=== PATIENT | female | born 1940 | race Caucasian/White ===

== ENCOUNTER 2017-09-29 21:34 | Inpatient (IN) | payer OTHER ==
[~2017-09-29] VITALS: Ht 157.5 cm; Wt 54.9 kg
[~2017-09-29 21:34] MED LIST: COZAAR100 MG
[2017-09-29] MEDS ORDERED: ADULT ASPIRIN81 MG (22:11)
[2017-09-29] MEDS ORDERED: VITAMIN D2000 UNIT (22:12)
[2017-09-29] MEDS ORDERED: NORVASC10 MG (22:13)
== END 2017-10-06 15:50 | disposition home or self-care (01) | DRG 194 ==
LOC: ER 21:34 → MEDJ 09-30 10:28
PROC: 3E0F7GC Introduction of Other Therapeutic Substance into Respiratory Tract, Via Natural or Artificial Opening (ICD-10-PCS; principal; 2017-09-30)
PROC: 4A033R1 Measurement of Arterial Saturation, Peripheral, Percutaneous Approach (ICD-10-PCS; 2017-09-30)
PROC: BB24ZZZ Computerized Tomography (CT Scan) of Bilateral Lungs (ICD-10-PCS; 2017-09-30)
DX: J18.9 Pneumonia, unspecified organism (principal); J45.31 Mild persistent asthma with (acute) exacerbation; I10 Essential (primary) hypertension

== ENCOUNTER 2018-09-19 15:52 | Emergency (ER) | payer OTHER ==
[~2018-09-19] VITALS: Ht 160 cm; Wt 58.1 kg
[~2018-09-19 15:52] MED LIST changes: +ADULT ASPIRIN81 MG; +NORVASC10 MG; +VITAMIN D2000 UNIT
[2018-09-19] MEDS ORDERED: AVAPRO300 MG (16:18)
[2018-09-19] MEDS ORDERED: CARVEDILOL6.25 MG (16:18)
[2018-09-19] MEDS ORDERED: SERTRALINE HCL25 MG (16:18)
[2018-09-19] MEDS ORDERED: HYDRALAZINE HCL25 MG (16:19)
[2018-09-19] MEDS ORDERED: ANORO ELLIPTA1 EACH (16:22)
[2018-09-19] MEDS ORDERED: [UNRECOGNIZED DRUG - OTHER] (16:22)
[2018-09-19] MEDS ORDERED: CRESTOR20 MG (16:23)
[2018-09-19] MEDS ORDERED: AMLODIPINE BESY10 MG (16:23)
== END 2018-09-19 22:42 | disposition home or self-care (01) ==
LOC: ER 15:52
DX: J40 Bronchitis, not specified as acute or chronic (principal)